=== PATIENT | male | born 1985 | race Caucasian/White ===

== ENCOUNTER 2016-06-09 07:11 | Emergency (ER) | payer OTHER ==
[2016-06-09 07:20] VITALS: BP 152/71; PULSE 92; TEMP 97.5; BMI 32.1
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
== END 2016-06-09 08:19 | disposition home or self-care (01) ==
LOC: JER 07:11
DX: S50.02XA Contusion of left elbow, initial encounter (principal); Y35.91XA Legal intervention, means unspecified, law enforcement official injured, initial encounter; Y93.89 Activity, other specified; Y92.9 Unspecified place or not applicable
CPT/HCPCS: 99282-25

== ENCOUNTER 2016-06-20 07:09 | Emergency (ER) | payer OTHER ==
[2016-06-20 07:19] VITALS: BP 134/78; PULSE 82; TEMP 98.2; BMI 31.3
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
== END 2016-06-20 08:25 | disposition home or self-care (01) ==
LOC: JER 07:09
DX: S59.802A Other specified injuries of left elbow, initial encounter (principal); Y35.811A Legal intervention involving manhandling, law enforcement official injured, initial encounter; Y93.89 Activity, other specified; Y92.89 Other specified places as the place of occurrence of the external cause; Y99.0 Civilian activity done for income or pay
CPT/HCPCS: 73070-TC-LT; 99282-25

== ENCOUNTER 2017-06-10 02:12 | Emergency (ER) | payer OTHER ==
[2017-06-10 02:20] VITALS: BP 146/78; PULSE 94; TEMP 97.6; BMI 34.4
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
[2017-06-10] MEDS ORDERED: IBUPROFEN 400 MG TABLET (FP) PO ONE ×2 (03:27→03:34)
== END 2017-06-10 03:36 | disposition home or self-care (01) ==
LOC: JER 02:12
DX: S39.012A Strain of muscle, fascia and tendon of lower back, initial encounter (principal); Y35.811A Legal intervention involving manhandling, law enforcement official injured, initial encounter; Y93.89 Activity, other specified; Y92.238 Other place in hospital as the place of occurrence of the external cause; Y99.0 Civilian activity done for income or pay
CPT/HCPCS: 99283-25

== ENCOUNTER 2018-06-20 05:55 | Emergency (ER) | payer OTHER ==
[2018-06-20 06:45] VITALS: BP 128/78; PULSE 94; TEMP 98.4; BMI 32.1
[2018-06-20] MEDS ORDERED: IBUPROFEN 600 MG TABLET (FP) PO ONE ×2 (07:30→07:54)
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
== END 2018-06-20 08:01 | disposition home or self-care (01) ==
LOC: JER 05:55
DX: S80.211A Abrasion, right knee, initial encounter (principal); S20.219A Contusion of unspecified front wall of thorax, initial encounter; W18.39XA Other fall on same level, initial encounter; Y93.89 Activity, other specified; Y92.89 Other specified places as the place of occurrence of the external cause; Y99.0 Civilian activity done for income or pay; Y35.891A Legal intervention involving other specified means, law enforcement official injured, initial encounter
CPT/HCPCS: 99282-25

== ENCOUNTER 2018-10-13 00:37 | Emergency (ER) | payer OTHER | END 2018-10-13 02:09 | disposition home or self-care (01) | LOC: JER 00:37 ==

== ENCOUNTER 2019-05-29 03:22 | Emergency (ER) | payer OTHER ==
[2019-05-29 03:43] VITALS: BP 148/95; TEMP 98.3; BMI 32.8
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
[2019-05-29 04:29] VITALS: PULSE 91
== END 2019-05-29 04:30 | disposition home or self-care (01) ==
LOC: JER 03:22
DX: M25.522 Pain in left elbow (principal); Y35.891A Legal intervention involving other specified means, law enforcement official injured, initial encounter; Y93.89 Activity, other specified; Y92.410 Unspecified street and highway as the place of occurrence of the external cause; Y99.0 Civilian activity done for income or pay
CPT/HCPCS: 73070-TC-LT-FY; 99282-25

== ENCOUNTER 2019-06-19 05:07 | Emergency (ER) | payer OTHER ==
--- NOTE | 2019-06-19 05:18 | PDOC ---
History of Present Illness - General Chief Complaint: Pain, Acute Stated Complaint: R SIDED ABD PAIN History Source: Patient - History of Present Illness Initial Comments: 06/19/19 06:19 33-year-old male complaining of right upper quadrant pain worse with movement,. Patient reports that pain has been increasing for the last 6 hours. patient reports that he ate fried chicken for dinner, pain started prior to that. Denies pain to right flank, right lower quadrant, testicular pain, urinary symptoms, nausea, vomiting, diarrhea. Patient reports pain with deep respiration patient reports that he had a long flight 2 days ago denies shortness of breath , swelling to legs,, 06/19/19 06:23 Past History - Past Medical History Allergies/Adverse Reactions: Allergies Allergy/AdvReac Type Severity Reaction Status Date / Time No Known Allergies Allergy Verified 05/29/19 03:35 Home Medications: Ambulatory Orders Omeprazole 20 mg PO DAILY PRN 06/20/16 Ibuprofen [Motrin -] 600 mg PO TID #30 tablet 10/13/18 Methocarbamol [Robaxin -] 500 mg PO TID #30 tablet 10/13/18 COPD: No - Immunization History Immunization Up to Date: Yes - Psycho Social/Smoking Cessation Hx Smoking History: Never smoked Have you smoked in the past 12 months: No Hx Alcohol Use: No Drug/Substance Use Hx: No Substance Use Type: None Review of Systems - Review of Systems Able to Perform ROS?: Yes Is the patient limited Lib[place] proficient: No Constitutional: No: Symptoms Reported, See HPI, Chills, Diaphoresis, Fever, Loss of Appetite, Malaise, Night Sweats, Weakness, Weight Stable, Unintentional Wgt. Loss, Unexplained wgt Loss, Other ABD/GI: Yes: Nausea, Abdominal cramping (RUQ) *Physical Exam - Physical Exam General Appearance: Yes: Appropriately Dressed Respiratory/Chest: positive: Lungs Clear, Normal Breath Sounds Cardiovascular: positive: Regular Rate, Bradycardia Gastrointestinal/Abdominal: positive: Normal Bowel Sounds, Tender (minimal tenderness), Soft Integumentary: positive: Normal Color, Dry, Warm Neurologic: positive: Fully Oriented, Alert ED Treatment Course - LABORATORY CBC & Chemistry Diagram: 06/19/19 06:40 06/19/19 06:40 ED Progress Note - Progress Note Progress Note: 06/19/19 06:22 A: abdominal pain P: cbc cmp d-dime chest xray abdominal US. 06/19/19 [id number] patient signed out to Tammie GUIDO Discharge - Discharge Information Problems reviewed: Yes Clinical Impression/Diagnosis: Right upper quadrant pain, Upper abdominal pain Condition: Stable Disposition: HOME - Follow up/Referral Referrals: Mahendra Tidwell MD [Staff Physician] - 1 week - Patient Discharge Instructions Patient Printed Discharge Instructions: DI for Gastritis Additional Instructions: Drink plenty of fluids. Be sure to eat a bland diet and avoid fatty, acidic, caffeinated, fried foods. Follow-up with GI as instructed to further evaluate findings of a fatty liver versus hepatocellular disease. Return to the emergency department for profuse vomiting, shaking chills, high fevers or any other worsening symptoms. - Post Discharge Activity Work/Back to School Note: Back to Work
[2019-06-19 05:26] VITALS: BMI 34.4
--- NOTE | 2019-06-19 05:43 | PDOC ---
*Physical Exam - Vital Signs Last Vital Signs Temp Pulse Resp BP Pulse Ox 97.9 F 79 15 128/89 96 06/19/19 05:25 06/19/19 05:25 06/19/19 05:25 06/19/19 05:25 06/19/19 05:25 Medical Decision Making - Medical Decision Making 06/19/19 05:42 Patient seen by the advanced practice provider under my supervision. Ancillary testing reviewed as necessary. I agree with plan as outlined by the advanced practice provider. Discharge - Discharge Information Problems reviewed: Yes Clinical Impression/Diagnosis: Right upper quadrant pain - Follow up/Referral - Patient Discharge Instructions - Post Discharge Activity
[2019-06-19] MEDS ORDERED: ACETAMINOPHEN 1000 MG/100 ML VIAL (NON FORMULARY) IVPB ONE (05:55)
[2019-06-19] MEDS ORDERED: SODIUM CHLORIDE 1,000 ML IV STA (05:55)
[2019-06-19] MEDS ORDERED: ONDANSETRON 4 MG/2 ML VIAL IVPB ONE (05:56)
[2019-06-19 07:01] LABS: BASO % 0.6 % (0-2.0); EOS % 1.4 % (0-4.5); HEMATOCRIT 48.5 % (35.4-49); LYMPH % 25.4 % (8-40); MCH 31.7 pg (25.7-33.7); MEAN CELL VOLUME 90.5 fl (80-96); MEAN PLT VOLUME 7.3 fl (7.5-11.1); MONO % 10.4 % (3.8-10.2); NEUT % 62.2 % (42.8-82.8); PLATELET COUNT 227 K/MM3 (134-434); RBC 5.36 M/mm3 (4.00-5.60); RDW 13.7 % (11.9-15.9); WHITE BLOOD COUNT 5.2 K/mm3 (4.0-10.0)
[2019-06-19] MEDS ORDERED: ACETAMINOPHEN INJECTION 100 ML IVPB ONE (07:11)
[2019-06-19] MEDS ORDERED: ONDANSETRON 4 MG/2 ML VIAL ONE (07:11)
[2019-06-19 07:17] LABS: INR 0.96 (0.83-1.09); PROTHROMBIN TIME (PATIENT) 11.3 SEC (9.7-13.0)
[2019-06-19 07:20] LABS: ACTIVATED PTT 30.7 SECONDS (25.2-36.5)
[2019-06-19 07:26] LABS: BILIRUBIN,TOTAL 0.3 mg/dL (0.2-1); BLOOD UREA NITROGEN 12.6 mg/dL (7-18); CALCIUM 9.1 mg/dL (8.5-10.1); CREATININE 1.2 mg/dL (0.55-1.3); POTASSIUM 4.3 mmol/L (3.5-5.1); TOT PROT 7.2 g/dl (6.4-8.2)
[2019-06-19 08:19] VITALS: BP 118/75; PULSE 59; TEMP 98.2
[2019-06-19 09:16] LABS: PH,URINE 5.5 (5.0-8.0); URINE APPEARANCE CLEAR; URINE BILIRUBIN NEGATIVE (NEGATIVE); URINE COLOR YELLOW; URINE GLUCOSE (UA) NEGATIVE (NEGATIVE); URINE KETONE NEGATIVE (NEGATIVE); URINE LEUK ESTERASE NEGATIVE (NEGATIVE); URINE NITRITE NEGATIVE (NEGATIVE); URINE PROTEIN NEGATIVE (NEGATIVE); URINE UROBILINOGEN 0.2 mg/dL (0.2-1.0)
--- NOTE | 2019-06-19 09:38 | PDOC ---
*Physical Exam - Vital Signs Last Vital Signs Temp Pulse Resp BP Pulse Ox 98.2 F 59 L 19 118/75 100 06/19/19 08:18 06/19/19 08:18 06/19/19 08:18 06/19/19 08:18 06/19/19 08:18 - Physical Exam 06/19/19 09:36 - Physical Exam General Appearance: Nourished, Appropriately Dressed, No Distress HEENT: EOMI, Normal Voice, No Muffled/Hoarse voice, Hearing Grossly Normal, moist mucosa Neck: Supple, No Lymphadenopathy (R), No Lymphadenopathy (L), No Rigidity, No Decreased range of motion Respiratory/Chest: Lungs Clear, Normal Breath Sounds. No Respiratory Distress, No Accessory Muscle Use Cardiovascular: Regular Rhythm, Regular Rate, S1, S2 Gastrointestinal/Abdominal: Normal Bowel Sounds, Soft. Non-tender, No Guarding , No Rebound, No Rigidity; moderate epigastric tenderness to palpation. No reproducible right upper quadrant tenderness to palpation. No Zafar sign. Musculoskeletal: Normal Inspection. No Decreased Range of Motion Extremity: Normal Capillary Refill, Normal Inspection Integumentary: Normal Color, Dry. No Rash Neurologic: enamel burner II-XII NML intact, Fully Oriented, Alert, Normal Mood/Affect, Normal Response <Jaleesa Fry - Last Filed: 06/19/19 10:05> - Vital Signs Last Vital Signs Temp Pulse Resp BP Pulse Ox 98.2 F 59 L 19 118/75 100 06/19/19 08:18 06/19/19 08:18 06/19/19 08:18 06/19/19 08:18 06/19/19 08:18 <Giovanni Younger - Last Filed: 06/19/19 15:27> ED Treatment Course - LABORATORY CBC & Chemistry Diagram: 06/19/19 06:40 06/19/19 06:40 - ADDITIONAL ORDERS Additional order review: Laboratory Results 06/19/19 06/19/19 06/19/19 08:40 06:40 06:40 PT with INR 11.30 INR 0.96 PTT (Actin FS) 30.7 D-Dimer Sodium Potassium Chloride Carbon Dioxide Anion Gap BUN Creatinine Est GFR (CKD-EPI)AfAm Est GFR (CKD-EPI)NonAf Random Glucose Calcium Total Bilirubin AST ALT Alkaline Phosphatase Total Protein Albumin Lipase 129 Urine Color Yellow Urine Appearance Clear Urine pH 5.5 D Ur Specific [place] 1.018 Urine Protein Negative Urine Glucose (UA) Negative Urine Ketones Negative Urine Blood Negative Urine Nitrite Negative Urine Bilirubin Negative Urine Urobilinogen 0.2 Ur Leukocyte Esterase Negative 06/19/19 06/19/19 06:40 06:40 PT with INR INR PTT (Actin FS) D-Dimer 283 Sodium 138 Potassium 4.3 Chloride 104 Carbon Dioxide 27 Anion Gap 8 BUN 12.6 Creatinine 1.2 Est GFR (CKD-EPI)AfAm 90.89 Est GFR (CKD-EPI)NonAf 78.42 Random Glucose 88 Calcium 9.1 Total Bilirubin 0.3 AST 13 L ALT 33 Alkaline Phosphatase 52 Total Protein 7.2 Albumin 4.0 Lipase Urine Color Urine Appearance Urine pH Ur Specific [place] Urine Protein Urine Glucose (UA) Urine Ketones Urine Blood Urine Nitrite Urine Bilirubin Urine Urobilinogen Ur Leukocyte Esterase 06/19/19 06:40 RBC 5.36 MCV 90.5 MCHC 35.0 RDW 13.7 MPV 7.3 L Neutrophils % 62.2 Lymphocytes % 25.4 Monocytes % 10.4 H Eosinophils % 1.4 Basophils % 0.6 - Medications Given in the ED: ED Medications Discontinued Medications Generic Name Dose Route Start Last Admin Trade Name Freq PRN Reason Stop Dose Admin Acetaminophen 1,000 mg 06/19/19 05:55 06/19/19 07:29 Ofirmev Injection - IVPB 06/19/19 05:56 1,000 mg ONCE ONE Administration Sodium Chloride 1,000 mls @ 1,000 mls/hr 06/19/19 05:55 06/19/19 07:29 Normal Saline - IV 06/19/19 06:54 1,000 mls/hr ASDIR STA Administration Ondansetron HCl 4 mg 06/19/19 05:56 06/19/19 07:29 Zofran Injection IVPB 06/19/19 05:57 4 mg ONCE ONE Administration <Jaleesa Fry D - Last Filed: 06/19/19 10:05> - LABORATORY CBC & Chemistry Diagram: 06/19/19 06:40 06/19/19 06:40 - ADDITIONAL ORDERS Additional order review: Laboratory Results 06/19/19 06/19/19 06/19/19 08:40 06:40 06:40 PT with INR 11.30 INR 0.96 PTT (Actin FS) 30.7 D-Dimer Sodium Potassium Chloride Carbon Dioxide Anion Gap BUN Creatinine Est GFR (CKD-EPI)AfAm Est GFR (CKD-EPI)NonAf Random Glucose Calcium Total Bilirubin AST ALT Alkaline Phosphatase Total Protein Albumin Lipase 129 Urine Color Yellow Urine Appearance Clear Urine pH 5.5 D Ur Specific [place] 1.018 Urine Protein Negative Urine Glucose (UA) Negative Urine Ketones Negative Urine Blood Negative Urine Nitrite Negative Urine Bilirubin Negative Urine Urobilinogen 0.2 Ur Leukocyte Esterase Negative 06/19/19 06/19/19 06:40 06:40 PT with INR INR PTT (Actin FS) D-Dimer 283 Sodium 138 Potassium 4.3 Chloride 104 Carbon Dioxide 27 Anion Gap 8 BUN 12.6 Creatinine 1.2 Est GFR (CKD-EPI)AfAm 90.89 Est GFR (CKD-EPI)NonAf 78.42 Random Glucose 88 Calcium 9.1 Total Bilirubin 0.3 AST 13 L ALT 33 Alkaline Phosphatase 52 Total Protein 7.2 Albumin 4.0 Lipase Urine Color Urine Appearance Urine pH Ur Specific [place] Urine Protein Urine Glucose (UA) Urine Ketones Urine Blood Urine Nitrite Urine Bilirubin Urine Urobilinogen Ur Leukocyte Esterase 06/19/19 06:40 RBC 5.36 MCV 90.5 MCHC 35.0 RDW 13.7 MPV 7.3 L Neutrophils % 62.2 Lymphocytes % 25.4 Monocytes % 10.4 H Eosinophils % 1.4 Basophils % 0.6 - Medications Given in the ED: ED Medications Discontinued Medications Generic Name Dose Route Start Last Admin Trade Name Freq PRN Reason Stop Dose Admin Acetaminophen 1,000 mg 06/19/19 05:55 06/19/19 07:29 Ofirmev Injection - IVPB 06/19/19 05:56 1,000 mg ONCE ONE Administration Sodium Chloride 1,000 mls @ 1,000 mls/hr 06/19/19 05:55 06/19/19 07:29 Normal Saline - IV 06/19/19 06:54 1,000 mls/hr ASDIR STA Administration Ondansetron HCl 4 mg 06/19/19 05:56 06/19/19 07:29 Zofran Injection IVPB 06/19/19 05:57 4 mg ONCE ONE Administration <Giovanni Younger - Last Filed: 06/19/19 15:27> ED Progress Note - Progress Note Progress Note: 06/19/19 09:37 Assessment: Patient is a 33-year-old male who was endorsed to me by MATHEW Huffman for right upper quadrant abdominal pain since last night. The patient had a recent flight from [facility] 2 days ago. The patient was initially at ultrasound upon my arrival in the ED. After his ultrasound study he was examined and found to have primarily epigastric abdominal pain. The patient denies any fevers or chills. Plan: -Follow-up ultrasound results -Labs stable and d-dimer negative therefore the patient does not need a CTA chest to rule out PE -Will reassess <Jaleesa Fry - Last Filed: 06/19/19 10:05> Medical Decision Making - Medical Decision Making 06/19/19 10:05 The patient has been made aware that his ultrasound is negative for acute pathology. He does have what appears to be a fatty liver or underlying hepatocellular disease but he does have normal liver function tests. The patient has been made aware of these findings and has been advised that he must follow this up with GI. A referral to GI has been given to him today. The patient understands and agrees with this treatment plan and he is stable for discharge. <Jaleesa Fry - Last Filed: 06/19/19 10:05> - Medical Decision Making 06/19/19 15:27 I reviewed the case of the mid-level practitioner and was available for consultation while in the emergency department <Giovanni Younger - Last Filed: 06/19/19 15:27> Discharge - Discharge Information Problems reviewed: Yes <Jaleesa Fry - Last Filed: 06/19/19 10:05> <Giovanni Younger - Last Filed: 06/19/19 15:27> - Discharge Information Clinical Impression/Diagnosis: Right upper quadrant pain, Upper abdominal pain Condition: Stable Disposition: HOME - Follow up/Referral Referrals: Mahendra Tidwell MD [Staff Physician] - 1 week - Patient Discharge Instructions Patient Printed Discharge Instructions: DI for Gastritis Additional Instructions: Drink plenty of fluids. Be sure to eat a bland diet and avoid fatty, acidic, caffeinated, fried foods. Follow-up with GI as instructed to further evaluate findings of a fatty liver versus hepatocellular disease. Return to the emergency department for profuse vomiting, shaking chills, high fevers or any other worsening symptoms. - Post Discharge Activity Work/Back to School Note: Back to Work
--- NOTE | 2019-06-19 11:10 | EKG ---
Test Reason : Blood Pressure : / mmHG Vent. Rate : 057 BPM Atrial Rate : 057 BPM P-R Int : 150 ms QRS Dur : 100 ms QT Int : 412 ms P-R-T Axes : 038 047 019 degrees QTc Int : 401 ms SINUS BRADYCARDIA WITH SINUS ARRHYTHMIA OTHERWISE NORMAL ECG WHEN COMPARED WITH ECG OF 19-NOV-2013 14:55, NO SIGNIFICANT CHANGE WAS FOUND Confirmed by MD HAIR MOYSES ([id number]) on 06/19/2019 11:09:52 AM Referred By: Confirmed By:EUGENE HAIR MD
== END 2019-06-19 10:26 | disposition home or self-care (01) ==
LOC: JER 05:07
PROC: 3E033NZ Introduction of Analgesics, Hypnotics, Sedatives into Peripheral Vein, Percutaneous Approach (ICD-10-PCS; principal; 2019-06-19)
PROC: 3E033GC Introduction of Other Therapeutic Substance into Peripheral Vein, Percutaneous Approach (ICD-10-PCS; 2019-06-19)
DX: R10.11 Right upper quadrant pain (principal)
CPT/HCPCS: 36415; 71046-TC-FY; 76705-TC; 80053; 81003; 83690; 85025; 85379; 85610; 85730; 87086; 93005; 93010; 99285-25; J0131; J7030

== ENCOUNTER 2019-06-28 01:26 | Emergency (ER) | payer OTHER ==
[2019-06-28 01:54] VITALS: BP 147/92; PULSE 72; TEMP 97.9; BMI 33.2
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
== END 2019-06-28 03:07 | disposition home or self-care (01) ==
LOC: JER 01:26
DX: Z77.29 Contact with and (suspected) exposure to other hazardous substances (principal)
CPT/HCPCS: 99282-25

== ENCOUNTER 2021-10-14 00:19 | Emergency (ER) | payer OTHER ==
[2021-10-14 00:26] VITALS: BP 158/96; PULSE 96; TEMP 99.1; BMI 32.4
== END 2021-10-14 00:36 | disposition home or self-care (01) ==
LOC: FER 00:19
DX: S63.301A Traumatic rupture of unspecified ligament of right wrist, initial encounter (principal); S50.811A Abrasion of right forearm, initial encounter; M54.50 Low back pain, unspecified; W01.0XXA Fall on same level from slipping, tripping and stumbling without subsequent striking against object, initial encounter
CPT/HCPCS: 99281-25

== ENCOUNTER 2022-01-18 05:15 | Day surgery (SDC) | payer OTHER ==
[2022-01-13 13:51] VITALS: BMI 32.8
[~2022-01-18 05:15] MED LIST: BUPIVACAINE HCL/PF 0.5% (5MG/ML) 10 ML VIAL NR ONE; LIDOCAINE HCL 1% PRESERVATIVE FREE - 30ML VIAL NR ONE; TRIAMCINOLONE ACET 40MG/1ML VIAL NR ONE
[2022-01-18] MEDS ORDERED: TRIAMCINOLONE ACET 40MG/1ML VIAL ONE (07:31)
[2022-01-18] MEDS ORDERED: LIDOCAINE HCL/PF 1% SDV 5ML VIAL ONE (07:31)
[2022-01-18] MEDS ORDERED: BUPIVACAINE HCL/PF 0.5% (5MG/ML) 10 ML VIAL ONE (07:34)
[2022-01-18 14:19] VITALS: BP 134/67; PULSE 67; RESP 18; TEMP 98.7
== END 2022-01-18 13:50 | disposition home or self-care (01) ==
LOC: JASU-SURG 05:15
PROVIDERS: ATTEND Pain Medicine Pain Medicine
PROC: 3E0U3BZ Introduction of Anesthetic Agent into Joints, Percutaneous Approach (ICD-10-PCS; 2022-01-18)
PROC: 3E0U33Z Introduction of Anti-inflammatory into Joints, Percutaneous Approach (ICD-10-PCS; principal; 2022-01-18 11:30)
DX: M53.3 Sacrococcygeal disorders, not elsewhere classified (principal)
CPT/HCPCS: 76000-TC-FY

== ENCOUNTER 2022-02-08 04:24 | Day surgery (SDC) | payer OTHER ==
[2022-02-07 11:38] VITALS: BMI 32.8
[2022-02-08] MEDS ORDERED: BUPIVACAINE HCL/PF 0.75% 10 ML VIAL ONE (07:45)
[2022-02-08] MEDS ORDERED: LIDOCAINE HCL/PF 1% SDV 5ML VIAL ONE (07:45)
[2022-02-08] MEDS ORDERED: BUPIVACAINE HCL/PF 0.75% 10 ML VIAL NR ONE ×2 (13:52→13:53)
[2022-02-08] MEDS ORDERED: LIDOCAINE HCL 1% PRESERVATIVE FREE - 30ML VIAL IJ ONE (13:52)
[2022-02-08 14:09] VITALS: RESP 18; TEMP 97.2
[2022-02-08 14:47] VITALS: BP 120/60; PULSE 74
== END 2022-02-08 14:20 | disposition home or self-care (01) ==
LOC: JASU-SURG 04:24
PROVIDERS: ATTEND Pain Medicine Pain Medicine
PROC: BR16YZZ Fluoroscopy of Lumbar Facet Joint(s) using Other Contrast (ICD-10-PCS; 2022-02-08)
PROC: 3E0T3BZ Introduction of Anesthetic Agent into Peripheral Nerves and Plexi, Percutaneous Approach (ICD-10-PCS; principal; 2022-02-08 14:30)
DX: M47.816 Spondylosis without myelopathy or radiculopathy, lumbar region (principal)
CPT/HCPCS: 76000-TC-FY

== ENCOUNTER 2022-10-27 22:39 | Emergency (ER) | payer OTHER | END 2022-10-27 23:18 | disposition home or self-care (01) | LOC: FER 22:39 | DX: S80.01XA Contusion of right knee, initial encounter (principal); S46.912A Strain of unspecified muscle, fascia and tendon at shoulder and upper arm level, left arm, initial encounter; M25.512 Pain in left shoulder; M25.561 Pain in right knee; X50.0XXA Overexertion from strenuous movement or load, initial encounter; Y93.89 Activity, other specified; Y92.009 Unspecified place in unspecified non-institutional (private) residence as the place of occurrence of the external cause | CPT/HCPCS: 99282-25 ==

== ENCOUNTER 2023-05-14 19:34 | Emergency (ER) | payer OTHER ==
[2023-05-14 19:46] VITALS: BP 146/83; PULSE 79; RESP 18; TEMP 98; BMI 34.2
== END 2023-05-14 20:23 | disposition home or self-care (01) ==
LOC: FER 19:34
DX: S60.512A Abrasion of left hand, initial encounter (principal); M25.522 Pain in left elbow; Y35.811A Legal intervention involving manhandling, law enforcement official injured, initial encounter
CPT/HCPCS: 99283-25

== ENCOUNTER 2023-05-31 01:57 | Emergency (ER) | payer OTHER ==
[2023-05-31] MEDS ORDERED: IBUPROFEN 600 MG TABLET (FP) PO ONE ×2 (02:11→02:14)
[2023-05-31 02:19] VITALS: BP 147/86; PULSE 87; RESP 16; TEMP 98.6; BMI 33.6
== END 2023-05-31 02:22 | disposition home or self-care (01) ==
LOC: FER 01:57
DX: S80.02XA Contusion of left knee, initial encounter (principal); M79.632 Pain in left forearm; W18.39XA Other fall on same level, initial encounter
CPT/HCPCS: 99283-25

== ENCOUNTER 2023-06-13 04:24 | Day surgery (SDC) | payer OTHER ==
[2023-06-08 17:28] VITALS: BMI 33.6
[2023-06-13] MEDS ORDERED: DEXAMETHASONE SOD PHOSPHATE 10 MG/1 ML VIAL ONE (07:35)
[2023-06-13] MEDS ORDERED: LIDOCAINE HCL/PF 1% SDV 5ML VIAL ONE (07:35)
[2023-06-13 09:17] VITALS: RESP 18
[2023-06-13] MEDS: LIDOCAINE 1% P/F 10 MG/ML VIAL INF ONE ×2 (09:47→09:57)
[2023-06-13] MEDS: DEXAMETHASONE SOD PHOSPHATE 10 MG/1 ML VIAL IVPUSH ONE ×2 (09:48→10:01)
[2023-06-13] MEDS: IOHEXOL 180 MG/1 ML ML IJ ONE ×2 (09:51→10:00)
[2023-06-13 10:17] VITALS: TEMP 97.8
[2023-06-13 10:51] VITALS: BP 129/77; PULSE 85
[2023-06-13] MEDS ORDERED: ACETAMINOPHEN 500 MG TABLET (FP) PO PRN (15:02)
== END 2023-06-13 10:35 | disposition home or self-care (01) ==
LOC: JASU-SURG 04:24
PROVIDERS: ATTEND Pain Medicine Pain Medicine
PROC: 3E0R3BZ Introduction of Anesthetic Agent into Spinal Canal, Percutaneous Approach (ICD-10-PCS; 2023-06-13)
PROC: 3E0R33Z Introduction of Anti-inflammatory into Spinal Canal, Percutaneous Approach (ICD-10-PCS; principal; 2023-06-13 10:30)
DX: M54.16 Radiculopathy, lumbar region (principal)
CPT/HCPCS: 76000-TC-FY; J1100

== ENCOUNTER 2023-07-28 20:22 | Emergency (ER) | payer OTHER ==
[2023-07-28 20:28] VITALS: BP 159/93; PULSE 98; RESP 17; TEMP 97.8; BMI 33.6
[2023-07-28] MEDS ORDERED: IBUPROFEN 600 MG TABLET (FP) PO ONE (20:44)
[2023-07-28] MEDS: IBUPROFEN 600 MG TABLET (FP) PO ONE (20:49)
== END 2023-07-28 20:56 | disposition home or self-care (01) ==
LOC: FER 20:22
DX: M25.531 Pain in right wrist (principal); S69.91XA Unspecified injury of right wrist, hand and finger(s), initial encounter; X50.1XXA Overexertion from prolonged static or awkward postures, initial encounter
CPT/HCPCS: 99283-25

== ENCOUNTER 2024-01-04 19:06 | Emergency (ER) | payer OTHER ==
[2024-01-04 19:19] VITALS: BP 157/86; PULSE 89; RESP 18; TEMP 98.6; BMI 33.6
[2024-01-04] MEDS ORDERED: IBUPROFEN 600 MG TABLET (FP) PO ONE (21:00)
[2024-01-04] MEDS: IBUPROFEN 600 MG TABLET (FP) PO ONE (21:05)
== END 2024-01-04 21:22 | disposition home or self-care (01) ==
LOC: FER 19:06
DX: S63.502A Unspecified sprain of left wrist, initial encounter (principal); V87.7XXA Person injured in collision between other specified motor vehicles (traffic), initial encounter; Y99.0 Civilian activity done for income or pay
CPT/HCPCS: 73110-TC-LT-FY; 99283-25

== ENCOUNTER 2024-02-22 21:14 | Emergency (ER) | payer OTHER ==
[2024-02-22 21:33] VITALS: BP 131/109; PULSE 88; RESP 18; TEMP 99.1; BMI 33.7
== END 2024-02-22 21:42 | disposition home or self-care (01) ==
LOC: FER 21:14
DX: S80.02XA Contusion of left knee, initial encounter (principal); S00.01XA Abrasion of scalp, initial encounter; Y35.811A Legal intervention involving manhandling, law enforcement official injured, initial encounter
CPT/HCPCS: 99282-25

== ENCOUNTER 2024-10-04 00:12 | Emergency (ER) | payer OTHER ==
[2024-10-04 00:23] VITALS: BP 151/94; PULSE 87; RESP 20; TEMP 98; BMI 35.2
[2024-10-04] MEDS ORDERED: IBUPROFEN 400 MG TABLET (FP) PO ONE (01:15)
[2024-10-04] MEDS: IBUPROFEN 400 MG TABLET (FP) PO ONE (01:16)
== END 2024-10-04 01:50 | disposition home or self-care (01) ==
LOC: JER 00:12
DX: S50.11XA Contusion of right forearm, initial encounter (principal); Y35.811A Legal intervention involving manhandling, law enforcement official injured, initial encounter
CPT/HCPCS: 73090-TC-RT-FY; 99283-25

== ENCOUNTER 2024-12-30 11:21 | Emergency (ER) | payer OTHER ==
[2024-12-30 11:38] VITALS: BP 130/83; PULSE 98; RESP 16; TEMP 98.3; BMI 35.2
== END 2024-12-30 12:44 | disposition home or self-care (01) ==
LOC: JERFT 11:21 → JER 11:21 → JERFT 12:44
DX: M79.651 Pain in right thigh (principal); Y35.811A Legal intervention involving manhandling, law enforcement official injured, initial encounter
CPT/HCPCS: 99282-25